=== PATIENT | male | born 1995 | race Caucasian/White ===

== ENCOUNTER 2017-05-07 09:36 | Emergency (ER) | payer BC ==
[~2017-05-07] VITALS: Ht 172.7 cm; Wt 73.3 kg
[~2017-05-07 09:36] MED LIST: AMPH10TA2 PO; AMPH30CA3 PO; IBUP-103 PO
[2017-05-07 09:45] VITALS: TEMP 36.5; Ht 172.7 cm; Wt 73.3 kg
[2017-05-07] MEDS ORDERED: SODIUM CHLORIDE 0.9% 1000ML 1,000 ML IV STA ×2 (10:10→11:20)
[2017-05-07] MEDS ORDERED: ONDANSETRON INJ 2 MG/ML 2 ML VIAL IV STA (10:10)
--- NOTE | 2017-05-07 10:19 | EMERGENCY ROOM VISIT NOTE ---
History First contact with patient: 10:03 Chief Complaint: ABDOMINAL PAIN Stated Complaint: HEADACHE,STOMACH ACHE,NAUSEA,WEAKNESS History of Present Illness The patient is a 21 year old male who presents to the Emergency Room with complaints of abdominal pain, nausea, vomiting and diarrhea. The patient states that 3 days ago he developed diarrhea. He has had persistent diarrhea since then. The patient also reports diffuse abdominal discomfort and vomiting since last night. He rates his discomfort a 7/10. He also reports a headache but states he has a history of migraines. He denies any fevers. He denies any pain in his chest or trouble breathing. He denies any urinary symptoms. He denies any known sick contacts. He denies any recent travel, particularly outside of the country. He denies any recent antibiotic use. He denies any personal or family history of ulcerative colitis or Crohn's disease. Review of Systems A 10 system review of systems was completed with positives and pertinent negatives listed in the HPI. Past Medical/Surgical History Medical Problems: (1) Migraine Social History Smoking Status: Never Smoker Marital Status: single Occupation Status: [employer] Current/Historical Medications Scheduled Amphetamine-Dextroamphetamine 10MG (Adderall 10MG), 10 MG PO Q2D Amphetamine-Dextroamphetamine 30MG (Adderall Xr 30MG), 30 MG PO Q2D Ondasetron Odt (Zofran Odt), 4 MG SL Q6H Scheduled PRN Tivnvgk-Ulomidbalitmi-Pvgunpko (Excedrin Extra Strength), 1 TAB PO UD PRN for Pain Physical Exam Vital Signs Date Time Temp Pulse Resp B/P (MAP) Pulse Ox O2 Delivery O2 Flow Rate FiO2 05/07/17 12:44 85 20 132/78 100 05/07/17 11:18 68 113/68 100 Room Air 05/07/17 09:45 36.5 82 20 114/77 97 Room Air Physical Exam VITALS: Vitals are noted on the nurse's note and reviewed by myself. Vital signs stable. GENERAL: This is a 21 year old male, in no acute distress, nondiaphoretic, well- developed well-nourished. SKIN: The skin was without rashes, erythema, edema, or bruising. There is no tenting of the skin. Capillary reflex less than 2 seconds. HEAD: Normocephalic atraumatic. EARS: External auditory canals clear, tympanic membranes pearly olvera without erythema or effusion bilaterally. EYES: Pupils equal round and reactive to light and accommodation. Conjunctivae without injection, sclerae without icterus. Extraocular movements intact. NOSE: Patent, turbinates without inflammation or discharge. MOUTH: Mucous membranes moist. Tonsils are not enlarged. Pharynx without erythema or exudate. Uvula midline. Airway patent. Tongue does not deviate. NECK: Supple without nuchal rigidity. No lymphadenopathy. No thyromegaly. Cervical spine is nontender. No JVD. HEART: Regular rate and rhythm without murmurs gallops or rubs. LUNGS: Clear to auscultation bilaterally without wheezes, rales or rhonchi. No retractions or accessory muscle use. ABDOMEN: Positive bowel sounds x 4. Soft, mild diffuse tenderness, without masses or organomegaly. MUSCULOSKELETAL: No muscle atrophy, erythema, or edema noted. Full range of motion in all extremities. Strength 5/5 throughout. NEURO: Patient was alert and oriented to person place and time. No focal neurological deficits. Medical Decision & Procedures Laboratory Results 05/07/17 10:45 Red Blood Count 5.47, Mean Corpuscular Volume 82.4, Mean Corpuscular Hemoglobin 29.3, Mean Corpuscular Hemoglobin Concent 35.5, Mean Platelet Volume 9.5, Neutrophils (%) (Auto) 65.1, Lymphocytes (%) (Auto) 24.3, Monocytes (%) (Auto) 8.5, Eosinophils (%) (Auto) 1.9, Basophils (%) (Auto) 0.2, Neutrophils # (Auto) 3.13, Lymphocytes # (Auto) 1.17, Monocytes # (Auto) 0.41, Eosinophils # (Auto) 0.09, Basophils # (Auto) 0.01 05/07/17 10:45 Test 05/07/17 10:45 05/07/17 11:50 White Blood Count 4.81 K/uL (4.8-10.8) Red Blood Count 5.47 M/uL (4.7-6.1) Hemoglobin 16.0 g/dL (14.0-18.0) Hematocrit 45.1 % (42-52) Mean Corpuscular Volume 82.4 fL (80-100) Mean Corpuscular Hemoglobin 29.3 pg (25-34) Mean Corpuscular Hemoglobin Concent 35.5 g/dl (32-36) Platelet Count 126 K/uL (130-400) Mean Platelet Volume 9.5 fL (7.4-10.4) Neutrophils (%) (Auto) 65.1 % Lymphocytes (%) (Auto) 24.3 % Monocytes (%) (Auto) 8.5 % Eosinophils (%) (Auto) 1.9 % Basophils (%) (Auto) 0.2 % Neutrophils # (Auto) 3.13 K/uL (1.4-6.5) Lymphocytes # (Auto) 1.17 K/uL (1.2-3.4) Monocytes # (Auto) 0.41 K/uL (0.11-0.59) Eosinophils # (Auto) 0.09 K/uL (0-0.5) Basophils # (Auto) 0.01 K/uL (0-0.2) RDW Standard Deviation 36.6 fL (36.4-46.3) RDW Coefficient of Variation 12.2 % (11.5-14.5) Immature Granulocyte % (Auto) 0.0 % Immature Granulocyte # (Auto) 0.00 K/uL (0.00-0.02) Anion Gap 9.0 mmol/L (3-11) Est Creatinine Clear Calc Drug Dose 117.7 ml/min Estimated GFR () 130.4 Estimated GFR (Non- 112.5 BUN/Creatinine Ratio 16.8 (10-20) Calcium Level 9.3 mg/dl (8.5-10.1) Total Bilirubin 0.6 mg/dl (0.2-1) Aspartate Amino Transf (AST/SGOT) 17 U/L (15-37) Alanine Aminotransferase (ALT/SGPT) 16 U/L (12-78) Alkaline Phosphatase 61 U/L (45-117) Total Protein 7.1 gm/dl (6.4-8.2) Albumin 4.0 gm/dl (3.4-5.0) Globulin 3.1 gm/dl (2.5-4.0) Albumin/Globulin Ratio 1.3 (0.9-2) Lipase 170 U/L (73-393) Urine Color YELLOW Urine Appearance CLEAR (CLEAR) Urine pH 6.0 (4.5-7.5) Urine Specific [place] 1.032 (1.000-1.030) Urine Protein NEG (NEG) Urine Glucose (UA) NEG (NEG) Urine Ketones NEG (NEG) Urine Occult Blood NEG (NEG) Urine Nitrite NEG (NEG) Urine Bilirubin NEG (NEG) Urine Urobilinogen NEG (NEG) Urine Leukocyte Esterase NEG (NEG) Medications Administered Medications (Trade) Dose Ordered Sig/Dejon Route Start Time Stop Time Status Last Admin Dose Admin Sodium Chloride 1,000 ml @ 999 mls/hr Q1H1M STAT IV 05/07/17 10:10 05/07/17 11:10 DC 05/07/17 10:57 999 MLS/HR Ondansetron HCl (Zofran Inj) 4 mg NOW STAT IV 05/07/17 10:10 05/07/17 10:12 DC 05/07/17 10:57 4 MG Sodium Chloride 1,000 ml @ 999 mls/hr Q1H1M STAT IV 05/07/17 11:20 05/07/17 12:20 DC 05/07/17 11:27 999 MLS/HR Diphenhydramine HCl (Benadryl Inj) 25 mg NOW STAT IV 05/07/17 11:20 05/07/17 11:23 DC 05/07/17 11:26 25 MG Prochlorperazine Edisylate (Compazine Inj) 10 mg NOW STAT IV 05/07/17 11:20 05/07/17 11:23 DC 05/07/17 11:26 10 MG ED Course The patient was seen and examined. Previous visits were reviewed. The patient does not have a fever or leukocytosis. He does not have any significant electrolyte abnormality. Lipase is not elevated. Urinalysis negative. The patient was hydrated normal saline solution 2 L He was given 4 mg IV Zofran He was given 10 mg IV Compazine and 25 mg IV Benadryl The patient was feeling much better after the above treatment The patient presents to the emergency department with diffuse abdominal discomfort, nausea, vomiting and diarrhea. The patient was unable to provide a stool sample today. The patient does not have fever or leukocytosis. He does not have any neck pain or nuchal rigidity to suggest meningitis. He has a headache but reports a history of migraines. He was feeling better with the above treatment. The patient has diffuse abdominal discomfort. I did reexamine him prior to discharge and he has persistent bilateral lower abdominal tenderness on examination. Given the fact that this has been several days, associated with diarrhea and without fever or leukocytosis, appendicitis is considered less likely but is still in the differential. I discussed the options with the patient. I offered to perform CT imaging today although the radiation may outweigh the benefits. The other option would be to follow up closely with the emergency department or [facility] services. The patient also spoke with his mother. At this time, he would like to defer CT imaging. The patient was given a prescription for Zofran. He should return immediately with any worsening symptoms. Otherwise, he should recheck with [facility] services by the end of the week. The case was discussed with Dr. Carpenter who agrees with the assessment and treatment plan Medical Decision DIFFERENTIAL DIAGNOSIS: Hepatitis, cholecystitis, cholangitis, biliary colic, pancreatitis, pneumonia, subdiaphragmatic abscess, appendicitis, inguinal hernia , nephrolithiasis, inflammatory bowel disease, mesenteric adenitis, peptic ulcer disease, GERD, gastritis, pancreatitis, myocardial infarction, pericarditis, ruptured aortic aneurysm, appendicitis, gastroenteritis, bowel obstruction, splenic infarct, diverticulitis, mesenteric ischemia, metabolic, peritonitis, among others. Medication Reconcilliation Current Medication List: was personally reviewed by me Blood Pressure Screening Patient's blood pressure: Normal blood pressure Blood pressure disposition: Did not require urgent referral Impression Primary Impression: Nausea vomiting and diarrhea Departure Information Dispostion Home / Self-Care Condition GOOD Prescriptions Ondasetron Odt (ZOFRAN ODT) 4 Mg Tab 4 MG SL Q6H for Nausea, #10 TAB Prov: Arabella Schulte PA-C 05/07/17 Referrals No Doctor, Assigned (PCP) Forms HOME CARE DOCUMENTATION FORM, IMPORTANT VISIT INFORMATION, School Instructions, Work Instructions Patient Instructions ED Food Poison Or Gastroenteritis, My [facility] Additional Instructions Zofran as prescribed, as needed for nausea and vomiting Increase fluids Return immediately with fevers, worsening headache, neck pain, neck stiffness Return immediately with worsening abdominal pain, localized pain to the right lower abdomen or generalized worsening symptoms Otherwise, follow-up with [facility] for recheck and stool cultures if symptoms persist Work Instructions Return To Work: 2 days School Instructions Return To School: 2 days
[2017-05-07] MEDS ORDERED: ASPI-391 PO (10:29)
[2017-05-07 11:08] LABS: BASO % 0.2 %; BASO ABS # 0.01 K/uL (0-0.2); COMPLETE YES; EOS % 1.9 %; HEMATOCRIT 45.1 % (42-52); LYMPH % 24.3 %; LYMPH ABS # 1.17 K/uL (1.2-3.4); MEAN CELL VOLUME 82.4 fL (80-100); MEAN CORPUSCULAR HEMOGLOBIN 29.3 pg (25-34); MEAN CORPUSCULAR HGB CONC 35.5 g/dl (32-36); MEAN PLATELET VOLUME 9.5 fL (7.4-10.4); MONO % 8.5 %; NEUT % 65.1 %; PLATELET COUNT 126 K/uL (130-400); RED BLOOD COUNT 5.47 M/uL (4.7-6.1); WHITE BLOOD COUNT 4.81 K/uL (4.8-10.8)
[2017-05-07] MEDS ORDERED: DiphenhydrAMINE HCL 50 MG/ML VIAL IV STA (11:20)
[2017-05-07] MEDS ORDERED: PROCHLORPERAZINE 5 MG/ML 2 ML VIAL IV STA (11:20)
[2017-05-07 11:27] LABS: BUN/CREATININE RATIO 16.8 (10-20); CALCIUM 9.3 mg/dl (8.5-10.1); CREATININE 0.96 mg/dl (0.60-1.40); POTASSIUM 4.1 mmol/L (3.5-5.1)
[2017-05-07 11:30] LABS: ALB/GLOB RATIO 1.3 (0.9-2)
[2017-05-07 12:00] LABS: URINE APPEARANCE CLEAR (CLEAR); URINE BILIRUBIN NEG (NEG); URINE COLOR YELLOW; URINE NITRITE NEG (NEG); URINE SPECIFIC GRAVITY 1.032 (1.000-1.030); UROBILINOGEN NEG (NEG); ZZUR CULT IF INDIC CLEAN CATCH NO
[2017-05-07 12:01] LABS: MANUAL MICROSCOPIC REQUIRED? NO; REVIEW REQ? NO
[2017-05-07] MEDS ORDERED: ONDA4TAB10 SL (12:34)
[2017-05-07 12:44] VITALS: BP 132/78; PULSE 85; O2SAT 100
== END 2017-05-07 12:47 | disposition home or self-care (01) ==
LOC: C.EDB 09:39
DX: R11.2 Nausea with vomiting, unspecified (principal); R19.7 Diarrhea, unspecified; R51 Headache; Z79.899 Other long term (current) drug therapy